=== PATIENT | female | born 1955 | race African-American/Black ===

== ENCOUNTER 2020-07-04 16:11 | Emergency (ER) | payer OTHER ==
[2020-07-04 17:48] LABS: BASOPHIL 0.4 % (0-2); EOSINOPHIL 1.9 % (0-5); HCT 41.3 % (37.0-47.0); LYMPHOCYTE 48.8 % (15-48); MCHC 31.5 g/dL (32.0-36.0); MCV 95.2 fL (78.0-100.0); MONOCYTE 11.3 % (0-12); MPV 10.3 fL (6.0-9.5); NEUTROPHIL 37.4 % (41-80); NRBC 0.6; PLT 148 K/uL (150-400); RBC 4.34 M/uL (4.20-5.40); RDW 15.3 % (11.5-14.0); WBC 4.7 K/uL (4.0-10.5)
[2020-07-04 17:57] LABS: INR 2.82 (0.9-1.2); PROTHROMBIN TIME 28.3 SECONDS (11.4-13.6)
[2020-07-04 18:03] LABS: ALBUMIN 2.5 g/dL (3.4-5.0); BILIRUBIN - TOTAL 0.3 mg/dL (0.2-1.0); CREATININE 0.88 mg/dL (0.51-0.95); GLOBULIN (CALCULATION) 4.7 g/dL; POTASSIUM 4.2 mmol/L (3.5-5.1); TOTAL PROTEIN 7.2 g/dL (6.4-8.2)
[2020-07-04 18:16] LABS: CKMB 0.5 ng/mL (0.0-3.6); PRO-BNP 222 pg/mL (<125)
== END 2020-07-04 20:55 | disposition home or self-care (01) ==
LOC: FER 16:11
PROVIDERS: Emergency Medicine
DX: I50.9 Heart failure, unspecified (principal); I69.354 Hemiplegia and hemiparesis following cerebral infarction affecting left non-dominant side; Z88.0 Allergy status to penicillin; Z88.2 Allergy status to sulfonamides; Z88.1 Allergy status to other antibiotic agents
CPT/HCPCS: 36415; 71045; 80053; 82553; 83880; 84484; 85025; 85610; 87040; J1940

== ENCOUNTER 2020-10-10 13:52 | Day surgery (SDCO) | payer OTHER ==
[~2020-10-10] VITALS: Ht 175.3 cm; Wt 179.8 kg
[2020-10-10 16:13] LABS: BASOPHIL 0.3 % (0-2); EOSINOPHIL 0.9 % (0-5); HCT 48.6 % (37.0-47.0); HGB 15.2 g/dl (12.5-16.0); LYMPHOCYTE 62.1 % (15-48); MCH 28.8 pg (25.0-31.0); MCHC 31.3 g/dL (32.0-36.0); MONOCYTE 11.8 % (0-12); MPV 11.6 fL (6.0-9.5); NEUTROPHIL 24.3 % (41-80); NRBC 0; PLT 112 K/uL (150-400); RBC 5.28 M/uL (4.20-5.40); WBC 3.5 K/uL (4.0-10.5)
[2020-10-10 16:46] LABS: ALBUMIN 2.9 g/dL (3.4-5.0); BILIRUBIN - TOTAL 0.3 mg/dL (0.2-1.0); BUN/CREAT RATIO (CALC) 20.5 RATIO; CREATININE 0.78 mg/dL (0.51-0.95); POTASSIUM 3.9 mmol/L (3.5-5.1); TOTAL PROTEIN 7.9 g/dL (6.4-8.2)
[2020-10-10 17:08] LABS: CORONAVIRUS 2019 SARS-COV-2 NEGATIVE (NEGATIVE); INFLUENZA A NAA NEGATIVE (NEGATIVE)
[2020-10-10 23:51] LABS: BILIRUBIN 1+ mg/dL (NEGATIVE); BLOOD 2+ Ery/uL (NEGATIVE); COLOR YELLOW (YELLOW); GLUCOSE (U) NORMAL (NORMAL); LEUKOCYTES TRACE Leu/uL (NEGATIVE); NITRITE POSITIVE (NEGATIVE); PROTEIN TRACE (LOW) mg/dL (NEGATIVE); SPECIFIC GRAVITY 1.025 (1.001-1.030)
[2020-10-10 23:53] LABS: CLARITY SLIGHTLY HAZY (CLEAR)
[2020-10-10 23:58] LABS: BACTERIA 4+; SQUAMOUS EPITHELIAL CELLS RARE
[2020-10-11] MEDS ORDERED: ASPIRIN EC81 MG PO (06:30)
[2020-10-11] MEDS ORDERED: AZO CRANBERRY1 EAC1 PO (06:31)
[2020-10-11] MEDS ORDERED: COREG 3.125M3.125 MG PO (06:32)
[2020-10-11] MEDS ORDERED: DEPAKOTE250 MG PO (06:33)
[2020-10-11] MEDS ORDERED: ELIQUIS5 MG PO (06:37)
[2020-10-11] MEDS ORDERED: LASIX20 MG PO (06:39)
[2020-10-11] MEDS ORDERED: GENVOYA TABLET1 EACH PO (07:03)
[2020-10-11] MEDS ORDERED: GLYCOLAX527 GM PO (07:04)
[2020-10-11] MEDS ORDERED: ADULT TUSS100 MG/5 M PO (07:05)
[2020-10-11 07:17] LABS: BASOPHIL 0.5 % (0-2); EOSINOPHIL 0.8 % (0-5); HCT 45.1 % (37.0-47.0); HGB 13.7 g/dl (12.5-16.0); LYMPHOCYTE 44.3 % (15-48); MCH 28.9 pg (25.0-31.0); MCHC 30.4 g/dL (32.0-36.0); MCV 95.1 fL (78.0-100.0); MONOCYTE 15.1 % (0-12); MPV 11.1 fL (6.0-9.5); NRBC 0; PLT 106 K/uL (150-400); RBC 4.74 M/uL (4.20-5.40); RDW 15.2 % (11.5-14.0); WBC 3.7 K/uL (4.0-10.5)
[2020-10-11] MEDS ORDERED: HYDROCODON-ACE1 EAC2 PO (07:28)
[2020-10-11] MEDS ORDERED: SYNTHROID25 MCG PO (07:29)
[2020-10-11] MEDS ORDERED: MELATONIN10 MG PO (07:31)
[2020-10-11] MEDS ORDERED: SENNA8.6 MG PO (07:32)
[2020-10-11] MEDS ORDERED: IMITREX50 MG PO (07:32)
[2020-10-11] MEDS ORDERED: SACCHAROMYCES250 MG PO (07:33)
[2020-10-11] MEDS ORDERED: PREZISTA800 MG PO (07:34)
[2020-10-11] MEDS ORDERED: OXAZEPAM15 MG PO (07:35)
[2020-10-11 07:36] LABS: BUN/CREAT RATIO (CALC) 21.8 RATIO; CREATININE 0.87 mg/dL (0.51-0.95); POTASSIUM 3.3 mmol/L (3.5-5.1)
[2020-10-11] MEDS ORDERED: ONDANSETRON HCL4 MG PO (07:36)
--- NOTE | 2020-10-11 16:04 | NUR ---
10/11/20 [facility] will accept patient back per Aminah Marks.
--- NOTE | 2020-10-11 16:47 | NUR ---
PT CALLED OUT ASKED TO HAVE PURE WICK CHANGED AT 1615. RN AND MANAGER DOMESTIC CHANGED PURE WICK ON PT AT 1640 AND FOUND BED TO BE WET. PT INFORMED THAT MORE HELP WOULD BE REQUIRED TO CHANGE BED LINENS AND PT STATED "JUST DON'T DO IT". EDUCATED ON THE NEED FOR PROPER HYGIENE AND BED LINENS WERE CHANGED ONCE 3 STAFF MEMBERS WERE ABLE TO ASSIST AT 1650.
[2020-10-12] MEDS ORDERED: LEVAQUIN500 MG PO (13:54)
[2020-10-12] MEDS ORDERED: OXAZEPAM15 MG PO (13:54)
--- NOTE | 2020-10-12 13:56 | NUR ---
10/12/20 Dr. Nath will be discharging back to [place].
--- NOTE | 2020-10-12 15:49 | NUR ---
S/S SAILAJA DAVEY AT [facility], REPORT GIVEN
--- NOTE | 2020-10-12 16:46 | NUR ---
BETH ARRIVED TO TRAILER STEERER PATIENT, PATIENT REFUSED TO LEAVE WITH EMS ON 2L NC. PATIENT EXPLAINED THE NEED FOR OXYGEN BUT PATIENT CONTINUED TO REFUSE. EMS AWARE
== END 2020-10-12 16:45 ==
LOC: FER 13:52 → FMS 22:20
PROVIDERS: Emergency Medicine; Internal Medicine; Nurse Practitioner; ADMIT Internal Medicine
DX: J18.9 Pneumonia, unspecified organism (principal); J96.01 Acute respiratory failure with hypoxia; B20 Human immunodeficiency virus [HIV] disease; G81.94 Hemiplegia, unspecified affecting left nondominant side; F03.91 Unspecified dementia, unspecified severity, with behavioral disturbance; N39.0 Urinary tract infection, site not specified; L98.491 Non-pressure chronic ulcer of skin of other sites limited to breakdown of skin; G40.909 Epilepsy, unspecified, not intractable, without status epilepticus; Z20.822 Contact with and (suspected) exposure to COVID-19; M32.9 Systemic lupus erythematosus, unspecified; E03.9 Hypothyroidism, unspecified; G47.33 Obstructive sleep apnea (adult) (pediatric); F32.9 Major depressive disorder, single episode, unspecified; F41.1 Generalized anxiety disorder; E05.00 Thyrotoxicosis with diffuse goiter without thyrotoxic crisis or storm; Z88.0 Allergy status to penicillin; Z88.1 Allergy status to other antibiotic agents; Z86.718 Personal history of other venous thrombosis and embolism; Z85.841 Personal history of malignant neoplasm of brain; Z85.3 Personal history of malignant neoplasm of breast; Z86.73 Personal history of transient ischemic attack (TIA), and cerebral infarction without residual deficits; Z90.49 Acquired absence of other specified parts of digestive tract; Z90.710 Acquired absence of both cervix and uterus
CPT/HCPCS: 36415; 36600; 71045; 80048; 80053; 81001; 82803; 83880; 84484; 85025; 85379; 87088; 93005; 93971; 94010; 94640; 94667; 94668; G0378; J2405; J2543; J3370; J7050; U0002

== ENCOUNTER 2020-12-03 12:47 | Inpatient (IN) | payer OTHER ==
[~2020-12-03] VITALS: Ht 175.3 cm; Wt 181.5 kg
[~2020-12-03 12:47] MED LIST: ADULT TUSS100 MG/5 M PO; ASPIRIN EC81 MG PO; AZO CRANBERRY1 EAC1 PO; COREG 3.125M3.125 MG PO; DEPAKOTE250 MG PO; ELIQUIS5 MG PO; GENVOYA TABLET1 EACH PO; GLYCOLAX527 GM PO; HYDROCODON-ACE1 EAC2 PO; IMITREX50 MG PO; LASIX20 MG PO; LEVAQUIN500 MG PO; MELATONIN10 MG PO; ONDANSETRON HCL4 MG PO; OXAZEPAM15 MG PO; PREZISTA800 MG PO; SACCHAROMYCES250 MG PO; SENNA8.6 MG PO; SYNTHROID25 MCG PO
[2020-12-03 13:58] LABS: BASOPHIL 0.4 % (0-2); EOSINOPHIL 0.2 % (0-5); HCT 48.3 % (37.0-47.0); HGB 14.8 g/dl (12.5-16.0); LYMPHOCYTE 59.5 % (15-48); MCH 28.9 pg (25.0-31.0); MCHC 30.6 g/dL (32.0-36.0); MCV 94.3 fL (78.0-100.0); MONOCYTE 10.5 % (0-12); MPV 11.8 fL (6.0-9.5); NEUTROPHIL 28.8 % (41-80); NRBC 2.2; RBC 5.12 M/uL (4.20-5.40)
[2020-12-03 14:00] LABS: PLT 91 K/uL (150-400)
[2020-12-03 14:09] LABS: ALBUMIN 2.9 g/dL (3.4-5.0); ALKALINE PHOSHATASE 49 U/L (46-116); ALT <6 U/L (14-59); AST 29 U/L (15-37); BILIRUBIN - TOTAL 0.3 mg/dL (0.2-1.0); BUN 15 mg/dL (7-18); BUN/CREAT RATIO (CALC) 16.7 RATIO; CHLORIDE 103 mmol/L (98-107); CO2 (BICARBONATE) 35 mmol/L (21-32); GLOBULIN (CALCULATION) 4.7 g/dL; GLUCOSE 90 mg/dL (74-106); POTASSIUM 4.9 mmol/L (3.5-5.1); TOTAL PROTEIN 7.6 g/dL (6.4-8.2)
[2020-12-03] MEDS ORDERED: ATIVAN0.5 MG PO (19:14)
[2020-12-03] MEDS ORDERED: HYDROCODON-ACE1 EAC2 PO (19:17)
[2020-12-03] MEDS ORDERED: VENTOLIN HFA IN18 GM INH (19:19)
[2020-12-04 05:20] LABS: BILIRUBIN 2+ mg/dL (NEGATIVE); BLOOD 2+ Ery/uL (NEGATIVE); CLARITY CLEAR (CLEAR); COLOR YELLOW (YELLOW); GLUCOSE (U) NORMAL (NORMAL); LEUKOCYTES NEGATIVE Leu/uL (NEGATIVE); NITRITE NEGATIVE (NEGATIVE); PROTEIN NEGATIVE (NEGATIVE); SPECIFIC GRAVITY 1.025 (1.001-1.030)
[2020-12-04 05:28] LABS: BACTERIA TRACE
[2020-12-04 06:46] LABS: BASOPHIL 0.3 % (0-2); EOSINOPHIL 0 % (0-5); HCT 52.6 % (37.0-47.0); HGB 16.3 g/dl (12.5-16.0); LYMPHOCYTE 35.7 % (15-48); MCH 29.3 pg (25.0-31.0); MCV 94.6 fL (78.0-100.0); MONOCYTE 3.6 % (0-12); NEUTROPHIL 58.8 % (41-80); NRBC 3.3; PLT 86 K/uL (150-400); RBC 5.56 M/uL (4.20-5.40); RDW 16.7 % (11.5-14.0); WBC 3.6 K/uL (4.0-10.5)
[2020-12-04 07:02] LABS: ALBUMIN 2.7 g/dL (3.4-5.0); BILIRUBIN - TOTAL 0.5 mg/dL (0.2-1.0); BUN/CREAT RATIO (CALC) 21.9 RATIO; CREATININE 0.73 mg/dL (0.51-0.95); GLOBULIN (CALCULATION) 4.9 g/dL; POTASSIUM 4.2 mmol/L (3.5-5.1); TOTAL PROTEIN 7.6 g/dL (6.4-8.2)
--- NOTE | 2020-12-05 16:36 | NUR ---
12/05/20 Ms. Henderson was admitted from [facility]. [facility] will accept back per Aminah Marks. Patient is in agreement.
--- NOTE | 2020-12-06 10:34 | NUR ---
12/06/20 A new COVID test is not required to return to [place]. Report given to MS SAILAJA [place].
[2020-12-06] MEDS ORDERED: MUCINEX1200 MG PO (11:06)
[2020-12-06] MEDS ORDERED: LEVAQUIN750 MG PO (11:06)
[2020-12-06] MEDS ORDERED: DUONEB 2.5-0.5M1 AMP NEB (11:26)
--- NOTE | 2020-12-06 14:10 | NUR ---
F/C REMOVED AT 1100 PT VOIDED AT 1400, PT HAS BEEN CLEANED X 3 OF BM PER STAFF TODAY. CALLED REPORT TO [facility] TAKED TO FRANCIA . REPORT GIVEN EMS HERE AT 1400 TO TAKE PT BACK TO [facility] PAPER WORK FAXED AND SENT WITH PATIENT.
== END 2020-12-06 14:10 | DRG 193 ==
LOC: FER 12:47 → FTCU 16:38 → FMS 16:38
PROVIDERS: Hospitalist; Internal Medicine; ADMIT Internal Medicine
DX: J18.9 Pneumonia, unspecified organism (principal); J96.01 Acute respiratory failure with hypoxia; J96.02 Acute respiratory failure with hypercapnia; I69.354 Hemiplegia and hemiparesis following cerebral infarction affecting left non-dominant side; Z68.41 Body mass index [BMI] 40.0-44.9, adult; Z21 Asymptomatic human immunodeficiency virus [HIV] infection status; E66.01 Morbid (severe) obesity due to excess calories; Z20.822 Contact with and (suspected) exposure to COVID-19; R82.81 Pyuria; F03.90 Unspecified dementia, unspecified severity, without behavioral disturbance, psychotic disturbance, mood disturbance, and anxiety; D69.6 Thrombocytopenia, unspecified; E03.9 Hypothyroidism, unspecified; G47.33 Obstructive sleep apnea (adult) (pediatric); M32.9 Systemic lupus erythematosus, unspecified; F32.9 Major depressive disorder, single episode, unspecified; G40.909 Epilepsy, unspecified, not intractable, without status epilepticus; F41.1 Generalized anxiety disorder; Z88.0 Allergy status to penicillin; Z88.2 Allergy status to sulfonamides; Z88.1 Allergy status to other antibiotic agents; Z91.040 Latex allergy status; Y95 Nosocomial condition; Z86.718 Personal history of other venous thrombosis and embolism; Z90.49 Acquired absence of other specified parts of digestive tract; Z90.710 Acquired absence of both cervix and uterus; Z98.890 Other specified postprocedural states
CPT/HCPCS: 36415; 36600; 71045; 80053; 81001; 82803; 83605; 83735; 83880; 84145; 84484; 85025; 85379; 87040; 87088; 93005; 94640; 94660; 94760; J0456; J2185; J2930; J7050; U0002

== ENCOUNTER 2021-02-03 08:21 | Emergency (ER) | payer OTHER ==
[~2021-02-03 08:21] MED LIST changes: +ATIVAN0.5 MG PO; +DUONEB 2.5-0.5M1 AMP NEB; +LEVAQUIN750 MG PO; +MUCINEX1200 MG PO; +VENTOLIN HFA IN18 GM INH
[2021-02-03 08:49] LABS: BASOPHIL 0.3 % (0-2); EOSINOPHIL 0.3 % (0-5); HCT 48.3 % (37.0-47.0); LYMPHOCYTE 60.2 % (15-48); MCH 29.5 pg (25.0-31.0); MCHC 31.1 g/dL (32.0-36.0); MCV 95.1 fL (78.0-100.0); MONOCYTE 12.7 % (0-12); NEUTROPHIL 25.7 % (41-80); NRBC 1.6; PLT 147 K/uL (150-400); RBC 5.08 M/uL (4.20-5.40); RDW 17.9 % (11.5-14.0); WBC 3.8 K/uL (4.0-10.5)
[2021-02-03 10:44] LABS: CREATININE 0.85 mg/dL (0.51-0.95); POTASSIUM 3.4 mmol/L (3.5-5.1)
== END 2021-02-03 12:08 | disposition home or self-care (01) ==
LOC: FER 08:21
PROVIDERS: Emergency Medicine
DX: J44.9 Chronic obstructive pulmonary disease, unspecified (principal); R09.02 Hypoxemia; R06.89 Other abnormalities of breathing; Z20.822 Contact with and (suspected) exposure to COVID-19; Z88.1 Allergy status to other antibiotic agents; Z88.0 Allergy status to penicillin; Z88.2 Allergy status to sulfonamides; Z91.040 Latex allergy status; Z91.018 Allergy to other foods
CPT/HCPCS: 36415; 36600; 71045; 80048; 82803; 83880; 85025; U0002

== ENCOUNTER 2021-03-01 19:23 | Inpatient (IN) | payer OTHER ==
[~2021-03-01] VITALS: Ht 175.3 cm; Wt 167.4 kg
[2021-03-01 20:29] LABS: BASOPHIL 0.3 % (0-2); EOSINOPHIL 0 % (0-5); HCT 49.7 % (37.0-47.0); HGB 15.8 g/dl (12.5-16.0); MCH 29.3 pg (25.0-31.0); MCHC 31.8 g/dL (32.0-36.0); MCV 92.2 fL (78.0-100.0); MONOCYTE 17.1 % (0-12); MPV 10.5 fL (6.0-9.5); NEUTROPHIL 38.5 % (41-80); NRBC 1.7; PLT 116 K/uL (150-400); RBC 5.39 M/uL (4.20-5.40); RDW 16.6 % (11.5-14.0); WBC 3.6 K/uL (4.0-10.5)
[2021-03-01 20:38] LABS: BILIRUBIN 3+ mg/dL (NEGATIVE); BLOOD NEGATIVE Ery/uL (NEGATIVE); GLUCOSE (U) TRACE mg/dL (NORMAL); LEUKOCYTES NEGATIVE Leu/uL (NEGATIVE); NITRITE POSITIVE (NEGATIVE); PROTEIN TRACE (LOW) mg/dL (NEGATIVE); UROBILINOGEN >=8.0 mg/dL (0.2-1.0)
[2021-03-01 20:44] LABS: ALBUMIN 2.7 g/dL (3.4-5.0); BUN/CREAT RATIO (CALC) 19.2 RATIO; CREATININE 0.78 mg/dL (0.51-0.95); GLOBULIN (CALCULATION) 3.9 g/dL; POTASSIUM 2.7 mmol/L (3.5-5.1); TOTAL PROTEIN 6.6 g/dL (6.4-8.2)
[2021-03-01 20:46] LABS: LACTIC ACID 1.2 mmol/L (0.4-1.9)
[2021-03-01 20:47] LABS: CLARITY HAZY (CLEAR); COLOR ORANGE (YELLOW)
[2021-03-01 20:58] LABS: URINARY RBC RARE
[2021-03-01 20:59] LABS: BACTERIA 1+; MUCOUS TRACE; SQUAMOUS EPITHELIAL CELLS 20-50
[2021-03-01 21:06] LABS: CORONAVIRUS 2019 SARS-COV-2 NEGATIVE (NEGATIVE); INFLUENZA A NAA NEGATIVE (NEGATIVE)
[2021-03-02 11:43] LABS: BUN/CREAT RATIO (CALC) 16.5 RATIO; CREATININE 0.79 mg/dL (0.51-0.95); MAGNESIUM 1.9 mg/dL (1.8-2.4); POTASSIUM 2.8 mmol/L (3.5-5.1)
[2021-03-03 06:28] LABS: BASOPHIL 0.2 % (0-2); EOSINOPHIL 0.5 % (0-5); HCT 47.1 % (37.0-47.0); HGB 14.7 g/dl (12.5-16.0); LYMPHOCYTE 35.7 % (15-48); MCH 29.1 pg (25.0-31.0); MCHC 31.2 g/dL (32.0-36.0); MCV 93.3 fL (78.0-100.0); MONOCYTE 20.4 % (0-12); MPV 9.7 fL (6.0-9.5); NRBC 0.7; RBC 5.05 M/uL (4.20-5.40); RDW 16.5 % (11.5-14.0); WBC 4.1 K/uL (4.0-10.5)
[2021-03-03 06:33] LABS: PLT 87 K/uL (150-400)
[2021-03-03 06:43] LABS: BUN/CREAT RATIO (CALC) 16.4 RATIO; CREATININE 0.73 mg/dL (0.51-0.95); POTASSIUM 3.4 mmol/L (3.5-5.1)
--- NOTE | 2021-03-03 13:05 | NUR ---
03/03/21 Ms. Henderson was admitted from [facility]. They will accept back per [facility].
--- NOTE | 2021-03-04 03:03 | NUR ---
PT VANCOMYCIN LEVEL WAS 25.2, PHARMACY NOTIFIED AND ORDERS TO HOLD 0200 DOSE.
[2021-03-05] MEDS ORDERED: HYDROCODON-ACE1 EAC2 PO (10:31)
[2021-03-05] MEDS ORDERED: ATIVAN0.5 MG PO (10:31)
[2021-03-05] MEDS ORDERED: POTASSIUM CHLO20 ME1 PO (10:34)
[2021-03-05] MEDS ORDERED: CEFDINIR300 MG PO (10:34)
== END 2021-03-05 16:00 | DRG 975 ==
LOC: FER 19:23 → FOFB 23:53 → FMS 03-03 00:21
PROVIDERS: Emergency Medicine Emergency Medical Services; Hospitalist; Nurse Practitioner; ADMIT Internal Medicine
DX: J18.9 Pneumonia, unspecified organism (principal); B20 Human immunodeficiency virus [HIV] disease; Z68.43 Body mass index [BMI] 50.0-59.9, adult; G93.41 Metabolic encephalopathy; I69.354 Hemiplegia and hemiparesis following cerebral infarction affecting left non-dominant side; R19.7 Diarrhea, unspecified; Z66 Do not resuscitate; E87.6 Hypokalemia; Z20.822 Contact with and (suspected) exposure to COVID-19; G47.33 Obstructive sleep apnea (adult) (pediatric); G40.909 Epilepsy, unspecified, not intractable, without status epilepticus; R09.02 Hypoxemia; Y95 Nosocomial condition; R10.9 Unspecified abdominal pain; I11.0 Hypertensive heart disease with heart failure; I50.9 Heart failure, unspecified; F03.90 Unspecified dementia, unspecified severity, without behavioral disturbance, psychotic disturbance, mood disturbance, and anxiety; E66.01 Morbid (severe) obesity due to excess calories; E03.9 Hypothyroidism, unspecified; F41.1 Generalized anxiety disorder; Z86.718 Personal history of other venous thrombosis and embolism; Z88.0 Allergy status to penicillin; Z88.2 Allergy status to sulfonamides; Z90.49 Acquired absence of other specified parts of digestive tract; Z90.710 Acquired absence of both cervix and uterus; Z98.890 Other specified postprocedural states; Z88.1 Allergy status to other antibiotic agents; Z79.01 Long term (current) use of anticoagulants; Z79.82 Long term (current) use of aspirin; Z79.899 Other long term (current) drug therapy
CPT/HCPCS: 36415; 71045; 80048; 80053; 80202; 81001; 83605; 83735; 83880; 84132; 84145; 84484; 85025; 87040; 87045; 87046; 87076; 87088; 87186; 87205; 87449; 93005; 94640; 94760; 96365; 96375; 96376; J0456; J0692; J1170; J1940; J1956; J2270; J2405; J3370; J3480; J7030; J7040; J7050; U0002

== ENCOUNTER 2021-04-27 08:47 | Day surgery (SDCO) | payer OTHER ==
[~2021-04-27] VITALS: Ht 157.5 cm; Wt 155.6 kg
[~2021-04-27 08:47] MED LIST changes: +CEFDINIR300 MG PO; +POTASSIUM CHLO20 ME1 PO
[2021-04-27 10:20] LABS: BILIRUBIN 1+ mg/dL (NEGATIVE); BLOOD 3+ Ery/uL (NEGATIVE); CLARITY CLOUDY (CLEAR); COLOR BROWN (YELLOW); GLUCOSE (U) NORMAL (NORMAL); LEUKOCYTES 1+ Leu/uL (NEGATIVE); NITRITE NEGATIVE (NEGATIVE); PROTEIN 3+ mg/dL (NEGATIVE); pH 7.5 (5.0-9.0)
[2021-04-27 10:24] LABS: URINARY WBC TNTC
[2021-04-27 10:25] LABS: BACTERIA 3+; URINARY RBC TNTC
[2021-04-27 10:35] LABS: BASOPHIL 0.2 % (0-2); EOSINOPHIL 0 % (0-5); HGB 14.7 g/dl (12.5-16.0); LYMPHOCYTE 18.7 % (15-48); MCH 30.2 pg (25.0-31.0); MCV 94.7 fL (78.0-100.0); MONOCYTE 11.6 % (0-12); MPV 11.1 fL (6.0-9.5); NEUTROPHIL 68.9 % (41-80); NRBC 0; PLT 87 K/uL (150-400); RBC 4.86 M/uL (4.20-5.40); RDW 20.6 % (11.5-14.0); WBC 16.2 K/uL (4.0-10.5)
[2021-04-27 11:25] LABS: ALBUMIN 2.2 g/dL (3.4-5.0); BILIRUBIN - TOTAL 0.7 mg/dL (0.2-1.0); BUN/CREAT RATIO (CALC) 18.2 RATIO; CREATININE 0.77 mg/dL (0.51-0.95); GLOBULIN (CALCULATION) 4.3 g/dL; POTASSIUM 3.2 mmol/L (3.5-5.1); TOTAL PROTEIN 6.5 g/dL (6.4-8.2)
[2021-04-27 13:30] LABS: INR 1.44 (0.9-1.2); PROTHROMBIN TIME 16.8 SECONDS (11.8-13.4)
[2021-04-27] MEDS ORDERED: MUCINEX 600MG600 MG PO (20:05)
[2021-04-27] MEDS ORDERED: NORCO 5-325 TA1 EACH PO (20:06)
[2021-04-27] MEDS ORDERED: PEPCID AC20 MG PO (20:07)
[2021-04-27] MEDS ORDERED: POTASSIUM CHLO20 ME1 PO (20:09)
[2021-04-27] MEDS ORDERED: ATARAX25 MG PO (20:12)
[2021-04-27] MEDS ORDERED: COMBIVENT RESPIM4 GM INH (20:13)
[2021-04-27] MEDS ORDERED: LAXATIVE SUPPOS10 MG PR (20:15)
[2021-04-28 11:15] LABS: BASOPHIL 0.1 % (0-2); EOSINOPHIL 0 % (0-5); HCT 45.5 % (37.0-47.0); HGB 14.5 g/dl (12.5-16.0); LYMPHOCYTE 12.3 % (15-48); MCH 30.5 pg (25.0-31.0); MCHC 31.9 g/dL (32.0-36.0); MCV 95.8 fL (78.0-100.0); MONOCYTE 5.6 % (0-12); MPV 10.7 fL (6.0-9.5); NEUTROPHIL 80.7 % (41-80); NRBC 0; PLT 77 K/uL (150-400); RBC 4.75 M/uL (4.20-5.40); RDW 20.1 % (11.5-14.0); WBC 13.6 K/uL (4.0-10.5)
[2021-04-28 11:26] LABS: BUN/CREAT RATIO (CALC) 24.6 RATIO; CREATININE 0.61 mg/dL (0.51-0.95); POTASSIUM 3.1 mmol/L (3.5-5.1)
--- NOTE | 2021-04-28 12:17 | NUR ---
04/28 Ms Henderson was admitted from [facility]. They will accept back per Aminah Marks. A new COVID test will be required if admission is greater that 72 hours.
[2021-04-29 06:18] LABS: BASOPHIL 0.1 % (0-2); EOSINOPHIL 0 % (0-5); HCT 41.7 % (37.0-47.0); LYMPHOCYTE 23.3 % (15-48); MCH 30.4 pg (25.0-31.0); MCHC 31.2 g/dL (32.0-36.0); MCV 97.7 fL (78.0-100.0); MONOCYTE 5.3 % (0-12); MPV 11.6 fL (6.0-9.5); NEUTROPHIL 70.7 % (41-80); NRBC 0.2; PLT 83 K/uL (150-400); RBC 4.27 M/uL (4.20-5.40); RDW 20.7 % (11.5-14.0); WBC 11.4 K/uL (4.0-10.5)
[2021-04-29 06:29] LABS: CREATININE 0.6 mg/dL (0.51-0.95); POTASSIUM 3.2 mmol/L (3.5-5.1)
[2021-04-30] MEDS ORDERED: LEVAQUIN750 MG PO (10:50)
[2021-04-30] MEDS ORDERED: NORCO 5-325 TA1 EACH PO (10:50)
== END 2021-04-30 13:44 ==
LOC: FER 08:47 → FMS 17:20
PROVIDERS: Emergency Medicine; Nurse Practitioner Acute Care; ADMIT Internal Medicine
DX: N30.01 Acute cystitis with hematuria (principal); B20 Human immunodeficiency virus [HIV] disease; D69.6 Thrombocytopenia, unspecified; E87.6 Hypokalemia; I49.3 Ventricular premature depolarization; F03.91 Unspecified dementia, unspecified severity, with behavioral disturbance; I10 Essential (primary) hypertension; E03.9 Hypothyroidism, unspecified; E66.01 Morbid (severe) obesity due to excess calories; G47.33 Obstructive sleep apnea (adult) (pediatric); Z86.73 Personal history of transient ischemic attack (TIA), and cerebral infarction without residual deficits; Z88.0 Allergy status to penicillin; Z88.2 Allergy status to sulfonamides; Z91.040 Latex allergy status; Z91.018 Allergy to other foods; Z20.822 Contact with and (suspected) exposure to COVID-19
CPT/HCPCS: 36415; 74018; 76770; 76856; 80048; 80053; 81001; 83605; 83690; 85025; 85610; 85730; 86850; 86900; 86901; 87040; 87088; 93005; 96374; 96375; G0378; J0696; J1170; J1200; J2930; J3480; J7030; U0002

== ENCOUNTER 2021-06-28 11:33 | Emergency (ER) | payer OTHER ==
[~2021-06-28 11:33] MED LIST changes: +ATARAX25 MG PO; +COMBIVENT RESPIM4 GM INH; +LAXATIVE SUPPOS10 MG PR; +MUCINEX 600MG600 MG PO; +NORCO 5-325 TA1 EACH PO; +PEPCID AC20 MG PO
[2021-06-28 12:14] LABS: BASOPHIL 0.4 % (0-2); EOSINOPHIL 0.4 % (0-5); HCT 38.9 % (37.0-47.0); HGB 12.7 g/dl (12.5-16.0); LYMPHOCYTE 43.2 % (15-48); MCH 31.7 pg (25.0-31.0); MCHC 32.6 g/dL (32.0-36.0); MONOCYTE 7.1 % (0-12); MPV 11.7 fL (6.0-9.5); NEUTROPHIL 48.5 % (41-80); NRBC 0.4; PLT 123 K/uL (150-400); RBC 4.01 M/uL (4.20-5.40); RDW 15.8 % (11.5-14.0); WBC 5.6 K/uL (4.0-10.5)
[2021-06-28 12:28] LABS: BILIRUBIN 2+ mg/dL (NEGATIVE); BLOOD 3+ Ery/uL (NEGATIVE); CLARITY TURBID (CLEAR); COLOR YELLOW (YELLOW); GLUCOSE (U) NORMAL (NORMAL); LEUKOCYTES 2+ Leu/uL (NEGATIVE); NITRITE POSITIVE (NEGATIVE); PROTEIN 2+ mg/dL (NEGATIVE); SPECIFIC GRAVITY >=1.030 (1.001-1.030)
[2021-06-28 12:48] LABS: LACTIC ACID 2.1 mmol/L (0.4-1.9)
[2021-06-28 12:52] LABS: ALBUMIN 3.1 g/dL (3.4-5.0); BILIRUBIN - TOTAL 0.5 mg/dL (0.2-1.0); BUN/CREAT RATIO (CALC) 36.4 RATIO; CREATININE 0.55 mg/dL (0.51-0.95); GLOBULIN (CALCULATION) 4.5 g/dL; POTASSIUM 2.6 mmol/L (3.5-5.1); TOTAL PROTEIN 7.6 g/dL (6.4-8.2)
[2021-06-28 13:08] LABS: URINARY WBC 20-50
[2021-06-28 13:09] LABS: BACTERIA 4+; URINARY RBC TNTC; YEAST PRESENT
[2021-06-28 13:10] LABS: CORONAVIRUS 2019 SARS-COV-2 NEGATIVE (NEGATIVE); INFLUENZA A NAA NEGATIVE (NEGATIVE)
== END 2021-06-28 17:26 | disposition home or self-care (01) ==
LOC: FER 11:33
PROVIDERS: Emergency Medicine
DX: N39.0 Urinary tract infection, site not specified (principal); E87.6 Hypokalemia; F03.90 Unspecified dementia, unspecified severity, without behavioral disturbance, psychotic disturbance, mood disturbance, and anxiety; I69.954 Hemiplegia and hemiparesis following unspecified cerebrovascular disease affecting left non-dominant side; I10 Essential (primary) hypertension; L89.891 Pressure ulcer of other site, stage 1; Z88.0 Allergy status to penicillin; Z88.1 Allergy status to other antibiotic agents; Z88.2 Allergy status to sulfonamides; Z88.5 Allergy status to narcotic agent; Z91.040 Latex allergy status; Z20.822 Contact with and (suspected) exposure to COVID-19
CPT/HCPCS: 36415; 71045; 80053; 81001; 83605; 84145; 85025; 87040; 87088; 87186; J1956; J3480; U0002

== ENCOUNTER 2021-07-02 20:04 | Inpatient (IN) | payer OTHER ==
[~2021-07-02] VITALS: Ht 157.5 cm; Wt 131.1 kg
[2021-07-02 20:51] LABS: BASOPHIL 0.4 % (0-2); HCT 38.7 % (37.0-47.0); HGB 12.2 g/dl (12.5-16.0); LYMPHOCYTE 43.1 % (15-48); MCH 31.1 pg (25.0-31.0); MCHC 31.5 g/dL (32.0-36.0); MCV 98.7 fL (78.0-100.0); MPV 11.1 fL (6.0-9.5); NEUTROPHIL 51.1 % (41-80); NRBC 0; PLT 100 K/uL (150-400); RBC 3.92 M/uL (4.20-5.40); RDW 15.7 % (11.5-14.0); WBC 7.1 K/uL (4.0-10.5)
[2021-07-02 20:57] LABS: BILIRUBIN 2+ mg/dL (NEGATIVE); BLOOD 3+ Ery/uL (NEGATIVE); CLARITY CLEAR (CLEAR); COLOR YELLOW (YELLOW); GLUCOSE (U) NORMAL (NORMAL); LEUKOCYTES 2+ Leu/uL (NEGATIVE); NITRITE POSITIVE (NEGATIVE); PROTEIN 2+ mg/dL (NEGATIVE); pH 7.5 (5.0-9.0)
[2021-07-02 21:03] LABS: BILIRUBIN - TOTAL 0.5 mg/dL (0.2-1.0); BUN/CREAT RATIO (CALC) 37.3 RATIO; CREATININE 0.67 mg/dL (0.51-0.95); GLOBULIN (CALCULATION) 4.2 g/dL; POTASSIUM 2.5 mmol/L (3.5-5.1); TOTAL PROTEIN 7.2 g/dL (6.4-8.2)
[2021-07-02 21:05] LABS: LACTIC ACID 1.4 mmol/L (0.4-1.9)
[2021-07-02 21:07] LABS: AMORPHOUS URATES CRYSTALS MODERATE; BACTERIA 4+; CALCIUM OXALATE CRYSTALS TRACE; URINARY RBC TNTC; URINARY WBC TNTC
[2021-07-02] MEDS ORDERED: MULTIVITAMIN-MINERAL PO (23:50)
[2021-07-02] MEDS ORDERED: REMERON15 MG PO (23:51)
[2021-07-02] MEDS ORDERED: IMITREX50 MG PO (23:52)
[2021-07-02] MEDS ORDERED: SYNTHROID25 MCG PO (23:53)
[2021-07-02] MEDS ORDERED: NORCO 5-325 TA1 EACH PO (23:54)
[2021-07-02] MEDS ORDERED: MIRALAX17 GM PO (23:54)
--- NOTE | 2021-07-03 02:16 | NUR ---
0200 07/03/21 ROMEL HAS CHRONIC HERRING CATH IN PLACE FROM [facility]. BAG NOT LABLED OF DATE AND TIME OF INSERTION. NEW HERRING CATH 18 FR PLACED PER ORDER, STRICT STERILE TECHNIQUE USED, ANCHORED TO LEFT THIGH, SPECIMEN SENT TO LAB.
[2021-07-03 06:21] LABS: BASOPHIL 0.3 % (0-2); EOSINOPHIL 0.6 % (0-5); HGB 10.8 g/dl (12.5-16.0); LYMPHOCYTE 35.6 % (15-48); MCH 31.6 pg (25.0-31.0); MCHC 31.8 g/dL (32.0-36.0); MCV 99.4 fL (78.0-100.0); MONOCYTE 4.3 % (0-12); NEUTROPHIL 58.4 % (41-80); NRBC 0; RBC 3.42 M/uL (4.20-5.40); RDW 15.9 % (11.5-14.0); WBC 7.2 K/uL (4.0-10.5)
[2021-07-03 06:34] LABS: PLT 79 K/uL (150-400)
[2021-07-03 06:42] LABS: BUN/CREAT RATIO (CALC) 42.9 RATIO; CREATININE 0.56 mg/dL (0.51-0.95); POTASSIUM 3.8 mmol/L (3.5-5.1)
[2021-07-03 08:27] LABS: FT4 (FREE T4) 1.3 ng/dL (0.76-1.46)
--- NOTE | 2021-07-03 12:41 | NUR ---
PER MADHAV WITH [facility], PT MAY RETURN TO [facility] WHEN MEDICALLY STABLE.
[2021-07-04 06:05] LABS: BASOPHIL 0.3 % (0-2); EOSINOPHIL 1.3 % (0-5); HGB 10.2 g/dl (12.5-16.0); LYMPHOCYTE 40.7 % (15-48); MCH 31.6 pg (25.0-31.0); MCHC 31.9 g/dL (32.0-36.0); MCV 99.1 fL (78.0-100.0); MONOCYTE 5.3 % (0-12); MPV 10.9 fL (6.0-9.5); NEUTROPHIL 50.6 % (41-80); NRBC 0.3; RBC 3.23 M/uL (4.20-5.40); RDW 15.6 % (11.5-14.0); WBC 6.2 K/uL (4.0-10.5)
[2021-07-04 06:17] LABS: INR 1.4 (0.9-1.2); PROTHROMBIN TIME 16.5 SECONDS (11.8-13.4)
[2021-07-04 06:23] LABS: PLT 73 K/uL (150-400)
[2021-07-04 06:24] LABS: ALBUMIN 2.5 g/dL (3.4-5.0); BILIRUBIN - TOTAL 0.4 mg/dL (0.2-1.0); BUN/CREAT RATIO (CALC) 34.7 RATIO; CREATININE 0.49 mg/dL (0.51-0.95); GLOBULIN (CALCULATION) 3.5 g/dL; MAGNESIUM 2.1 mg/dL (1.8-2.4)
[2021-07-04 08:38] LABS: POTASSIUM 2.4 mmol/L (3.5-5.1)
[2021-07-05 06:21] LABS: BASOPHIL 0.3 % (0-2); EOSINOPHIL 1.1 % (0-5); HCT 31.7 % (37.0-47.0); HGB 10.4 g/dl (12.5-16.0); LYMPHOCYTE 27.4 % (15-48); MCH 31.6 pg (25.0-31.0); MCHC 32.8 g/dL (32.0-36.0); MCV 96.4 fL (78.0-100.0); MONOCYTE 6.6 % (0-12); MPV 11.6 fL (6.0-9.5); NEUTROPHIL 62.4 % (41-80); NRBC 0.3; RBC 3.29 M/uL (4.20-5.40); RDW 15.1 % (11.5-14.0); WBC 6.5 K/uL (4.0-10.5)
[2021-07-05 06:25] LABS: PLT 67 K/uL (150-400)
[2021-07-05 06:27] LABS: BUN/CREAT RATIO (CALC) 16.7 RATIO; CREATININE 0.48 mg/dL (0.51-0.95); MAGNESIUM 1.9 mg/dL (1.8-2.4); POTASSIUM 2.8 mmol/L (3.5-5.1)
[2021-07-06 06:03] LABS: CREATININE 0.42 mg/dL (0.51-0.95); MAGNESIUM 1.8 mg/dL (1.8-2.4)
[2021-07-06 06:29] LABS: BASOPHIL 0.5 % (0-2); EOSINOPHIL 0.9 % (0-5); HCT 29.7 % (37.0-47.0); HGB 9.8 g/dl (12.5-16.0); LYMPHOCYTE 16.3 % (15-48); MCH 31.8 pg (25.0-31.0); MCV 96.4 fL (78.0-100.0); MONOCYTE 6.2 % (0-12); MPV 11.6 fL (6.0-9.5); NRBC 0; RBC 3.08 M/uL (4.20-5.40); WBC 5.8 K/uL (4.0-10.5)
[2021-07-06 08:00] LABS: PLT 59 K/uL (150-400)
[2021-07-07 06:33] LABS: BASOPHIL 0.2 % (0-2); EOSINOPHIL 0.8 % (0-5); HCT 29.5 % (37.0-47.0); HGB 9.9 g/dl (12.5-16.0); LYMPHOCYTE 15.5 % (15-48); MCHC 33.6 g/dL (32.0-36.0); MCV 95.5 fL (78.0-100.0); MONOCYTE 5.4 % (0-12); MPV 10.8 fL (6.0-9.5); NRBC 0.5; PLT 61 K/uL (150-400); RBC 3.09 M/uL (4.20-5.40); RDW 15.2 % (11.5-14.0); WBC 6.1 K/uL (4.0-10.5)
[2021-07-07 06:49] LABS: BUN/CREAT RATIO (CALC) 15.6 RATIO; CREATININE 0.45 mg/dL (0.51-0.95); POTASSIUM 2.8 mmol/L (3.5-5.1)
[2021-07-08 05:35] LABS: BASOPHIL 0.3 % (0-2); EOSINOPHIL 0.8 % (0-5); HCT 29.3 % (37.0-47.0); HGB 9.9 g/dl (12.5-16.0); LYMPHOCYTE 18.9 % (15-48); MCH 32.2 pg (25.0-31.0); MCHC 33.8 g/dL (32.0-36.0); MCV 95.4 fL (78.0-100.0); MONOCYTE 4.4 % (0-12); MPV 11.3 fL (6.0-9.5); NEUTROPHIL 74.1 % (41-80); NRBC 0.7; RBC 3.07 M/uL (4.20-5.40); RDW 15.2 % (11.5-14.0); WBC 5.9 K/uL (4.0-10.5)
[2021-07-08 05:42] LABS: PLT 66 K/uL (150-400)
[2021-07-08 06:31] LABS: BUN/CREAT RATIO (CALC) 19.5 RATIO; CREATININE 0.41 mg/dL (0.51-0.95)
--- NOTE | 2021-07-09 18:19 | NUR ---
PT OUTPPUT 200CC DR. ROMERO AWARE.
--- NOTE | 2021-07-10 02:50 | NUR ---
MANUFACTURER NOTIFIED OF INCREASING PVC'S ON CARDIAC MONITORING, NEW ORDER RECIEVED AND NOTED TO OBTAIN MAG LEVEL. LAB DRAW ORDERED AND SENT TO LAB, RESULTS PENDING
[2021-07-10 03:12] LABS: BASOPHIL 0.2 % (0-2); EOSINOPHIL 0.6 % (0-5); HGB 9.4 g/dl (12.5-16.0); LYMPHOCYTE 21.4 % (15-48); MCH 31.4 pg (25.0-31.0); MCHC 32.4 g/dL (32.0-36.0); MONOCYTE 2.4 % (0-12); NRBC 0.6; RBC 2.99 M/uL (4.20-5.40); RDW 15.6 % (11.5-14.0); WBC 4.9 K/uL (4.0-10.5)
[2021-07-10 03:14] LABS: PLT 57 K/uL (150-400)
[2021-07-10 03:15] LABS: CREATININE 0.41 mg/dL (0.51-0.95); POTASSIUM 3.2 mmol/L (3.5-5.1)
[2021-07-10] MEDS ORDERED: NORCO 5-325 TA1 EACH PO (14:00)
[2021-07-10] MEDS ORDERED: KLOR-CON 1010 MEQ PO (14:00)
[2021-07-10] MEDS ORDERED: ZYVOX600 MG PO (14:01)
== END 2021-07-10 18:00 | DRG 698 ==
LOC: FER 20:04 → FMS 22:28
PROVIDERS: Allergy & Immunology; Allergy & Immunology Allergy; Internal Medicine; ADMIT Internal Medicine
PROC: 0T2BX0Z Change Drainage Device in Bladder, External Approach (ICD-10-PCS; principal; 2021-07-02)
PROC: B24BZZZ Ultrasonography of Heart with Aorta (ICD-10-PCS; 2021-07-03)
DX: T83.511A Infection and inflammatory reaction due to indwelling urethral catheter, initial encounter (principal); G93.41 Metabolic encephalopathy; R78.81 Bacteremia; F03.91 Unspecified dementia, unspecified severity, with behavioral disturbance; E87.0 Hyperosmolality and hypernatremia; Z68.43 Body mass index [BMI] 50.0-59.9, adult; Z16.21 Resistance to vancomycin; E87.1 Hypo-osmolality and hyponatremia; I69.354 Hemiplegia and hemiparesis following cerebral infarction affecting left non-dominant side; B37.49 Other urogenital candidiasis; L89.152 Pressure ulcer of sacral region, stage 2; Z20.822 Contact with and (suspected) exposure to COVID-19; I87.2 Venous insufficiency (chronic) (peripheral); B95.2 Enterococcus as the cause of diseases classified elsewhere; Z66 Do not resuscitate; E66.01 Morbid (severe) obesity due to excess calories; Z21 Asymptomatic human immunodeficiency virus [HIV] infection status; G89.29 Other chronic pain; E87.6 Hypokalemia; G47.33 Obstructive sleep apnea (adult) (pediatric); E03.9 Hypothyroidism, unspecified; F32.A Depression, unspecified; E83.42 Hypomagnesemia; G40.909 Epilepsy, unspecified, not intractable, without status epilepticus; F41.1 Generalized anxiety disorder; D69.6 Thrombocytopenia, unspecified; Y83.1 Surgical operation with implant of artificial internal device as the cause of abnormal reaction of the patient, or of later complication, without mention of misadventure at the time of the procedure; Z86.718 Personal history of other venous thrombosis and embolism; Z74.01 Bed confinement status; Z88.2 Allergy status to sulfonamides; Z91.040 Latex allergy status; Z88.1 Allergy status to other antibiotic agents; Z90.49 Acquired absence of other specified parts of digestive tract; Z90.711 Acquired absence of uterus with remaining cervical stump; Z98.890 Other specified postprocedural states; Z88.0 Allergy status to penicillin; Z85.3 Personal history of malignant neoplasm of breast; Z79.899 Other long term (current) drug therapy; Z79.01 Long term (current) use of anticoagulants; Z79.82 Long term (current) use of aspirin; Z99.3 Dependence on wheelchair
CPT/HCPCS: 36415; 70450; 71250; 80048; 80053; 81001; 83605; 83735; 83880; 84145; 84439; 84443; 84484; 85025; 85610; 87040; 87076; 87077; 87088; 87186; 92526; 93005; 94010; 94640; J0692; J2020; J3475; J3480; J7030; J7050; J7070; U0002